=== PATIENT | male | born 2005 | race Caucasian/White ===

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

== ENCOUNTER → 2023-01-02 09:54 | Outpatient (CLI) | payer OTHER, SELFPAY ==
--- NOTE | 2023-01-02 09:59 | XR_ITS ---
FINAL REPORT CLINICAL HISTORY: left forearm pain FINDINGS: LEFT FOREARM 2 views of the left forearm were obtained. There is no acute fracture or dislocation. The joints are intact. There are no soft tissue abnormalities. IMPRESSION: No acute process. Reviewed, Interpreted and Dictated by Issa Turcios III, MD Transcribed by Marina Castro Authenticated and [facility]
== END ==
PROVIDERS: PCP Pediatrics; Visit Provider Nurse Practitioner Family
DX: M79.632 Pain in left forearm (principal)
CPT/HCPCS: 73090

== ENCOUNTER → 2023-03-17 09:25 | Outpatient (CLI) | payer OTHER, SELFPAY | PROVIDERS: PCP Nurse Practitioner Family; Visit Provider Nurse Practitioner Family | DX: J02.9 Acute pharyngitis, unspecified (principal) | CPT/HCPCS: 87070 ==

== ENCOUNTER → 2023-09-25 09:39 | Outpatient (CLI) | payer OTHER, SELFPAY ==
[2023-09-25 18:06] LABS: Adenovirus,PCR Not Detected (NotDetected); Coronavirus 19, PCR Not Detected (NotDetected); Coronavirus 229E Not Detected (NotDetected); Coronavirus NL63 Not Detected (NotDetected); Coronavirus OC43 Not Detected (NotDetected); Coronovirus HKU1,PCR Not Detected (NotDetected); Human Metapneumovirus Not Detected (NotDetected); Influenza A, PCR Not Detected (NotDetected); Influenza AH1, 2009 Not Detected (NotDetected); Influenza AH1, PCR Not Detected (NotDetected); Influenza AH3,PCR Not Detected (NotDetected); Influenza B, PCR Not Detected (NotDetected); Parainfluenza 1, PCR Not Detected (NotDetected); Parainfluenza 2, PCR Not Detected (NotDetected); Parainfluenza 3, PCR Not Detected (NotDetected); Parainfluenza 4, PCR Not Detected (NotDetected); Respiratory Syncytial Virus Not Detected (NotDetected); Rhinovirus/Enterovirus Not Detected (NotDetected)
== END ==
LOC: LAB.DROPOF 09-26 09:39
PROVIDERS: PCP Nurse Practitioner Family; Visit Provider Nurse Practitioner Family
DX: R06.02 Shortness of breath (principal); J02.9 Acute pharyngitis, unspecified; R05.9 Cough, unspecified
CPT/HCPCS: 87632; 87635

== ENCOUNTER 2023-11-03 18:44 | Emergency (ER) | payer OTHER, SELFPAY ==
[2023-11-03 19:00] VITALS: BP 141/91; PULSE 76; RESP 18; TEMP 36.7; O2SAT 98; BMI 37.0
--- NOTE | 2023-11-03 19:01 | ED_ITS ---
Discharge Plan Disposition Patient Disposition: Home, Self-Care Condition: Good Prescriptions Prescriptions: New ibuprofen [IBU] 800 mg tablet 800 mg PO Q8HP PRN (Reason: Moderate Pain) Qty: 30 0RF amoxicillin [amoxicillin] 875 mg tablet 875 mg PO Q12H Qty: 20 0RF Referrals Follow up/Referrals: Ravinder Jacobs [Primary Care Provider] - See instructions Activity Restrictions/Add. Instructions Additional Instructions/Restrictions: Take the ibuprofen for pain Take the medications as directed. Follow up with your regular doctor. Follow up with your dentist as soon as you can get in to be seen. GO TO THE ER FOR ANY WORSENING SYMPTOMS Clinical Impressions Clinical Impression: Abscess, dental, Pain, dental, Jaw pain Instructions Patient Instructions: DI for Tooth Abscess, Ceftriaxone Injection, Ketorolac Injection Discharge ED Provider: Saad Corley [facility] General Stated complaint: tooth pain Time Seen by Provider: 11/03/23 19:01 History of Present Illness Provider Complaint: He states that for the past several days he has had worsening left upper jaw dental pain. Related Data Previous Rx's Medication Instructions Recorded amoxicillin 875 mg tablet 875 mg PO Q12H #20 tabs 11/03/23 ibuprofen 800 mg tablet (IBU) 800 mg PO Q8HP PRN Moderate Pain 11/03/23 #30 tabs Allergies Allergy/AdvReac Type Severity Reaction Status Date / Time No Known Allergies Allergy Verified 09/28/23 15:57 [facility] Disclaimer: The information contained in this section may have been updated after the patient was seen, as this information can be updated by other users. Medical History Anxiety Asthma Cellulitis of great toe of right foot Depression Gastroenteritis Headache Hypertension Left forearm pain Pain in both knees Pharyngitis Right foot pain Viral syndrome Viral syndrome Vomiting in adult Wheezing Surgical History History of tonsillectomy History of tympanostomy tube placement Family History (Updated 09/28/23 @ 15:58 by Brittani Manzo) Other No significant family history Social History Smoking Status: Current every day smoker tobacco type: e-cigarettes alcohol intake: never substance use type: denies use current occupational status: employed Travel in the last 8 weeks: None ROS Obtained: Yes All systems reviewed & no additional complaints except as documented Constitutional Constitutional: Denies chills and Denies fever(s) Eyes Eyes: Denies eye discharge ENT Ears, Nose, Mouth, and Throat: Reports as per HPI, Denies dizziness, Denies otalgia and Denies sore throat Cardiovascular Cardiovascular: Denies chest pain Respiratory Respiratory: Denies shortness of breath, Denies chest congestion, Denies cough, Denies stridor and Denies wheezing Gastrointestinal Gastrointestingal: Denies nausea or vomiting Musculoskeletal Musculoskeletal: Reports system reviewed and no additional complaints, except as documented and Denies arthralgias Integumentary/Breasts Skin/Breast: Denies rash Neurologic Neurologic: Denies dizziness and Denies paresthesias Allergic/Immunologic Allergic/Immunologic: Denies wheezing Physical Exam General General appearance: alert and in no apparent distress Head Head exam: atraumatic, normocephalic and normal inspection Eye Eye exam: Present normal appearance, PERRL and EOMI ENT ENT exam: Present mucous membranes moist, TM's normal bilaterally and normal external ear exam Expanded ENT Exam Nose exam: Absent sinus tenderness Nasal speculum exam: Bilateral: normal Mouth exam: Present normal external inspection; Absent drooling Teeth exam: Present dental caries, fractured tooth #, dental tenderness # and gi ngival swelling Throat exam: Present normal inspection Neck Neck exam: Present normal inspection, full ROM and trachea midline; Absent meningismus or lymphadenopathy Chest Chest inspection: Present normal inspection and symmetric chest wall rise; Absent tenderness Respiratory Respiratory exam: Present normal lung sounds bilaterally; Absent respiratory distress Cardiovascular Cardiovascular exam: Present regular rate and normal rhythm; Absent JVD Abdominal Exam Abdominal exam: Present soft and normal bowel sounds; Absent distention, tenderness or guarding Extremities Exam Extremities exam: Present normal inspection, full ROM and normal capillary refill; Absent calf tenderness Back Exam Back exam: Present normal inspection; Absent tenderness Neurological Exam Neurological exam: Present alert and oriented X3 Psychiatric Psychiatric exam: Present normal affect and normal mood Skin Skin exam: Present warm, dry, intact and normal color Lymphatic Lymphatic Findings: no adenopathy Medical Decision Making Medical Records Medical records reviewed: No I reviewed the patient's medical records. [place]lin Inquiry Pt receiving controlled substance: No
[2023-11-03 19:14] VITALS: BP 141/91; PULSE 76; RESP 18; TEMP 36.7; O2SAT 98
[2023-11-03] MEDS: TETRACAINE/BENZOCAINE/BUTAMBEN 56 GM SPRAY TP (19:46)
[2023-11-03] MEDS: LIDOCAINE 2% VISCOUS SOL 15ML UDC 15 ML PO (19:46)
[2023-11-03] MEDS: cefTRIAXone 1GM VIAL 1 GM IM (19:55)
[2023-11-03] MEDS: KETOROLAC 60MG/2ML VIAL 60 MG IM (19:55)
[2023-11-03] MEDS: LIDOCAINE 1% 5ML PF VIAL IM (19:55)
== END 2023-11-03 20:08 | disposition home or self-care (01) ==
PROVIDERS: Emergency Provider Nurse Practitioner Family; PCP Pediatrics
DX: K04.7 Periapical abscess without sinus (principal); R68.84 Jaw pain; K08.89 Other specified disorders of teeth and supporting structures; F17.290 Nicotine dependence, other tobacco product, uncomplicated; J45.909 Unspecified asthma, uncomplicated
CPT/HCPCS: 96372; 99212; 99214; G0463; J0696

== ENCOUNTER 2024-04-06 12:48 | Emergency (ER) | payer SELFPAY ==
[2024-04-06 12:56] VITALS: BP 132/91; PULSE 91; O2SAT 96
[2024-04-06 12:57] VITALS: BP 132/91; PULSE 89; RESP 16; TEMP 37.1; O2SAT 98; BMI 39.5
[2024-04-06 13:18] LABS: Basophils # 0.1 K/mm3 (0-0.2); Basophils % 1.8 % (0.1-2.0); Eosinophils # 0.1 K/mm3 (0.0-0.4); Eosinophils % 1.9 % (0.1-12.0); Hematocrit 49.2 % (42.0-52.0); Hemoglobin 16.6 g/dL (14.1-18.0); Lymphocytes # 2.2 K/mm3 (0.7-4.5); Lymphocytes % 38.9 % (10-50); Mean Corpuscular HGB Conc 33.8 g/dL (31.8-35.4); Mean Corpuscular Hemoglobin 29.5 pg (27.0-31.2); Mean Corpuscular Volume 87.3 fl (80-94); Mean Platelet Volume 8.4 fl (7.4-10.4); Monocytes # 0.6 K/mm3 (0.1-1.0); Monocytes % 10.3 % (1.7-9.3); Neutrophils # 2.7 K/mm3 (1.8-7.8); Neutrophils % 47.1 % (37.0-80.0); Platelet Count 276 K/mm3 (142-424); Red Blood Count 5.63 M/mm3 (4.60-6.20); Red Cell Distribution Width 13.3 % (11.5-17.5); White Blood Count 5.7 K/mm3 (4.8-10.8)
[2024-04-06 13:19] LABS: Chloride 103 mmol/L (98-107); Sodium 140 mmol/L (136-145)
[2024-04-06 13:20] LABS: Potassium 3.2 mmoL/L (3.5-5.1)
[2024-04-06 13:22] LABS: Alanine Aminotransferase 83 U/L (12-78); Albumin/Globulin Ratio 1.3 (1.1-1.8); Alkaline Phosphatase 52 U/L (38-126); Anion Gap 10.2 mEq/L (5-15); Aspartate Amino Transferase 65 U/L (17-59); Blood Urea Nitrogen 8 mg/dl (9-20); Carbon Dioxide 30 mmol/L (22.0-30.0); Creatinine Clearance Estimated 195 mL/min (50-200); Estimated Glomerular Filt Rate 94 ml/min (>60); GFR (African American) 114 ML/MIN (>60)
[2024-04-06 13:23] LABS: Calcium 8.9 mg/dl (8.4-10.2); Glucose 82 mg/dl (74-100); Lipase 142 U/L (23-300)
[2024-04-06 13:24] VITALS: BP 120/76; PULSE 86; O2SAT 96
[2024-04-06 13:30] VITALS: BP 113/70
[2024-04-06 13:44] VITALS: BP 114/75; PULSE 78; O2SAT 96
--- NOTE | 2024-04-06 14:02 | HMH.EDGENADL ---
Discharge Plan Disposition Patient Disposition: Home, Self-Care Condition: Good Prescriptions Prescriptions: New ondansetron 4 mg tablet,disintegrating 4 mg PO Q6 PRN (Reason: nausea and vomiting) 4 Days Qty: 16 0RF No Action ibuprofen [IBU] 800 mg tablet 800 mg PO Q8HP PRN (Reason: Moderate Pain) Qty: 30 0RF amoxicillin [amoxicillin] 875 mg tablet 875 mg PO Q12H Qty: 20 0RF Referrals Follow up/Referrals: Ravinder Jacobs [Primary Care Provider] - See instructions Activity Restrictions/Add. Instructions Additional Instructions/Restrictions: You have been evaluated in the ED for your complaints. You may follow-up with your PCP in the next 3 to 5 days. Please return to ED for any new or worsening symptoms. I have written for Zofran to assist with your nausea and vomiting. Please use this as needed. Clinical Impressions Clinical Impression: Gastroenteritis Instructions Patient Instructions: DI for Viral Gastroenteritis -- Adult, Gastroenteritis Diet Discharge ED Provider: Danish Estrada Adult HPI General Chief complaint: Abdominal Pain Stated complaint: lower abd pain, bloating Time Seen by Provider: 04/06/24 13:44 Mode of Arrival: Ambulatory Source of Information: Patient Limitations: No Limitations Description of Symptoms (Recalled from ER Triage Doc. by RN): pt c/o umbilical abd pain that feels like cramping and is a 7/10. pt also c/o N/V/D and worsening pain with PO intake. pt reports this has been ongoing since 04/02 after eating breakfast at [employer]. pt denies urinary symptoms, fever, sick contacts. pt denies any medical hx or surgeries. History of Present Illness HPI narrative: 19-year-old male with no pertinent past medical history presents today for evaluation concerning decreased appetite, nausea, vomiting and diarrhea over the past day. Patient states that he had [email or web address] today before his symptoms began. Has not wanted to eat much but has since been able to tolerate some oral intake. He is able to keep down his liquids. He denies any abdominal discomfort at this time. Has not had any fevers or chills. No further complaints. Related Data Previous Rx's Medication Instructions Recorded amoxicillin 875 mg tablet 875 mg PO Q12H #20 tabs 11/03/23 ibuprofen 800 mg tablet (IBU) 800 mg PO Q8HP PRN Moderate Pain 11/03/23 #30 tabs ondansetron 4 mg disintegrating 4 mg PO Q6 PRN nausea and vomiting 04/06/24 tablet 4 days #16 tabs Allergies Allergy/AdvReac Type Severity Reaction Status Date / Time No Known Allergies Allergy Verified 04/06/24 13:04 [facility] Disclaimer: The information contained in this section may have been updated after the patient was seen, as this information can be updated by other users. Medical History Anxiety Asthma Cellulitis of great toe of right foot Depression Gastroenteritis Headache Hypertension Left forearm pain Pain in both knees Pharyngitis Right foot pain Viral syndrome Viral syndrome Vomiting in adult Wheezing Surgical History History of tonsillectomy History of tympanostomy tube placement Family History (Updated 09/28/23 @ 15:58 by Brittani Manzo) Other No significant family history Social History Smoking Status: Current every day smoker tobacco type: e-cigarettes alcohol intake: never substance use type: denies use current occupational status: employed Travel in the last 8 weeks: None ROS Obtained: Yes All systems reviewed & no additional complaints except as documented Physical Exam General General appearance: alert and in no apparent distress Head Head exam: atraumatic and normocephalic Eye Eye exam: Present normal appearance, PERRL and EOMI ENT ENT exam: Present normal oropharynx and mucous membranes moist Neck Neck exam: Present full ROM; Absent meningismus Respiratory Respiratory exam: Absent respiratory distress, wheezes, stridor or accessory muscle use Cardiovascular Cardiovascular exam: Present normal rhythm Abdominal Exam Abdominal exam: Present soft; Absent distention, tenderness, guarding, rebound or rigidity Neurological Exam Neurological exam: Present alert, oriented X3 and CN II-XII intact; Absent motor sensory deficit Psychiatric Psychiatric exam: Present normal affect and normal mood Skin Skin exam: Present warm and dry Medical Decision Making Medical Records Medical records reviewed: Yes I reviewed the patient's medical records. [place]lin Inquiry Pt receiving controlled substance: No Collin was queried for this patient: No Vital Signs: 04/06/24 12:56 04/06/24 12:57 04/06/24 13:24 Temperature 98.8 F Temperature Source Oral Pulse Rate 91 H 86 Pulse Rate [Left] 89 Respiratory Rate 16 Blood Pressure 132/91 H 120/76 Blood Pressure [Right Arm] 132/91 H Blood Pressure Mean Blood Pressure Mean [Right Arm] 104 Blood Pressure Source [Right Arm] Automatic Cuff Blood Pressure Position [Right Arm] Sitting 02 Sat by Pulse Oximetry 96 98 96 Oxygen Delivery Method Room Air Room Air 04/06/24 13:30 04/06/24 13:44 Temperature Temperature Source Pulse Rate 78 Pulse Rate [Left] Respiratory Rate Blood Pressure 113/70 114/75 Blood Pressure [Right Arm] Blood Pressure Mean 82 Blood Pressure Mean [Right Arm] Blood Pressure Source [Right Arm] Blood Pressure Position [Right Arm] 02 Sat by Pulse Oximetry 96 Oxygen Delivery Method Lab Data Lab Results 04/06/24 13:00: WBC 5.7, RBC 5.63, Hgb 16.6, Hct 49.2, MCV 87.3, MCH 29.5, MCHC 33.8, RDW 13.3, Plt Count 276, MPV 8.4, Neut % (Auto) 47.1, Lymph % (Auto) 38.9, [place] % (Auto) 10.3 H, Eos % (Auto) 1.9, Baso % (Auto) 1.8, Neut # (Auto) 2.7, Lymph # (Auto) 2.2, [place] # (Auto) 0.6, Eos # (Auto) 0.1, Baso # (Auto) 0.1, Sodium 140, Potassium 3.2 L, Chloride 103, Carbon Dioxide 30, Anion Gap 10.2, BUN 8 L, Creatinine 1.00, Estimated Creat Clear 195, Estimated GFR 94, Est GFR ( Amer) 114, Glucose 82, Calcium 8.9, Total Bilirubin 1.0, AST 65 H, ALT 83 H, Alkaline Phosphatase 52, Total Protein 7.0, Albumin 4.0, Globulin 3.0, Albumin/Globulin Ratio 1.3, Lipase 142 04/06/24 13:00 04/06/24 13:00 Orders (Tests/Meds): ED MEDICATIONS Discontinued Medications Generic Name Dose Route Start Last Admin Trade Name Freq PRN Reason Stop Dose Admin Ondansetron HCl 4 mg 04/06/24 14:04 04/06/24 14:06 Ondansetron 4mg Odt SL 04/06/24 14:05 4 mg ONCE ONE Administration ORDERS Category Date Time Status Complete Blood Count Auto Diff Stat Lab 04/06/24 13:00 Completed Comprehensive Metabolic Panel Stat Lab 04/06/24 13:00 Completed Lipase Stat Lab 04/06/24 13:00 Completed Medical Decision Narrative: 19-year-old male with no pertinent past medical history presents today for evaluation concerning decreased appetite, nausea, vomiting and diarrhea over the past day. Patient states that he had [employer] today before his symptoms began. Has not wanted to eat much but has since been able to tolerate some oral intake. He is able to keep down his liquids. He denies any abdominal discomfort at this time. On assessment he was hemodynamically stable and in no acute distress. Afebrile. His chest was clear to station bilaterally. Abdomen soft nondistended and nontender to palpation. Otherwise exam findings unremarkable. Differential diagnoses include but limited to gastritis, gastroenteritis, electrolyte disturbance, among others. No elevation in WBC today at 5.7. His potassium is decreased at 3.2. Will order for replacement. AST 65, ALT 83, this elevation is likely due to patient's vomiting. Other labs are nonactionable. Lipase within range. On reassessment he remains medically stable and in no acute distress. Symptoms are resolved. Discussed with patient ED work-up and results and current plan to discharge. Provided with return to ED precautions and instructions concerning PCP follow-up. Patient verbalized understanding and agreement with plan. Subsequently discharged hemodynamically stable and in no acute distress. Critical Care Critical Care Time Critical Care Time: No
[2024-04-06] MEDS: ONDANSETRON 4MG ODT 4 MG SL (14:06)
[2024-04-06] MEDS: POTASSIUM CHLORIDE 20MEQ TAB 40 MEQ PO (14:29)
[2024-04-06 14:34] VITALS: BP 113/72; PULSE 76; RESP 18; TEMP 37.1; O2SAT 97
== END 2024-04-06 14:35 | disposition home or self-care (01) ==
PROVIDERS: Emergency Provider Emergency Medicine; PCP Pediatrics
DX: K52.9 Noninfective gastroenteritis and colitis, unspecified (principal); R11.2 Nausea with vomiting, unspecified; E87.6 Hypokalemia; F17.290 Nicotine dependence, other tobacco product, uncomplicated
CPT/HCPCS: 80053; 83690; 85025; 99283